=== PATIENT | male | born 1930 | race Caucasian/White ===

== ENCOUNTER 2017-05-23 11:38 | Emergency (ER) | payer MEDICARE ==
[~2017-05-23] VITALS: Ht 182.9 cm; Wt 90.7 kg
--- NOTE | 2017-05-23 11:40 | NUR ---
Pt, EMS and staff member from sending facility unable to provide any information about pt's home meds or alg upon arrival. Facility staff member stated she will call facility and request they fax the info.
--- NOTE | 2017-05-23 14:01 | NUR ---
Per pt may be d/c back to [facility]. Spoke with Elise at [facility] via telephone ( ) who stated they will send transport to come pick pt up from the ER.
[2017-05-23 16:12] VITALS: BP 142/64
--- NOTE | 2017-05-23 16:14 | NUR ---
Patient discharged to home in stable conditon. Written and verbal after care instructions given to care providers. Providers verbalize understanding of instructions.
== END 2017-05-23 17:06 | disposition home or self-care (01) ==
LOC: ER 11:40
DX: G30.9 Alzheimer's disease, unspecified (principal); F02.80 Dementia in other diseases classified elsewhere, unspecified severity, without behavioral disturbance, psychotic disturbance, mood disturbance, and anxiety; I70.0 Atherosclerosis of aorta; W18.30XA Fall on same level, unspecified, initial encounter; Y92.89 Other specified places as the place of occurrence of the external cause; Y93.89 Activity, other specified; Y99.8 Other external cause status
CPT/HCPCS: 71010; A4663

== ENCOUNTER 2017-05-27 21:35 | Emergency (ER) | payer MEDICARE ==
[~2017-05-27] VITALS: Ht 170.2 cm; Wt 74.8 kg
[2017-05-27] MEDS ORDERED: ACETAMINOPHEN 325 MG TABLET PO ONE (21:45)
[2017-05-27] MEDS ORDERED: ACETAMINOPHEN 325 MG TABLET ONE (22:02)
--- NOTE | 2017-05-27 22:15 | NUR ---
PATIENT OUT OF UNIT FOR CT SCAN VIA GURNY
--- NOTE | 2017-05-27 22:39 | NUR ---
PATIENT BACK FROM CT SCAN WITH NO DISTRESS NOTED
--- NOTE | 2017-05-27 22:59 | NUR ---
SPOKE TO STAFF NURSE AT [facility] ABOUT SENDING PATIENT BACK TO FACILITY. GAVE SBAR REPORT
--- NOTE | 2017-05-27 23:04 | NUR ---
ETA OF ANNE MARIE TO [facility]ATOR PATIENT TO TAKE BACK TO [facility] IS 1HR
--- NOTE | 2017-05-27 23:48 | NUR ---
GAVE SBAR REPORT TO [facility] TEAM WHO WILL TAKE PATIENT BACK TO [facility]
[2017-05-27 23:54] VITALS: BP 148/82
--- NOTE | 2017-05-27 23:54 | NUR ---
Patient discharged to home in stable conditon VIA [facility]. Written and verbal after care instructions given.
== END 2017-05-27 23:55 | disposition home or self-care (01) ==
LOC: ER 21:36
DX: S01.111A Laceration without foreign body of right eyelid and periocular area, initial encounter (principal); G30.9 Alzheimer's disease, unspecified; F02.80 Dementia in other diseases classified elsewhere, unspecified severity, without behavioral disturbance, psychotic disturbance, mood disturbance, and anxiety; W18.30XA Fall on same level, unspecified, initial encounter; Y93.89 Activity, other specified; Y92.89 Other specified places as the place of occurrence of the external cause; Y99.8 Other external cause status
CPT/HCPCS: 70450; 72125; A4663